=== PATIENT | male | born 1970 | race Caucasian/White ===

== ENCOUNTER 2017-03-12 08:29 | Outpatient (CLI) | payer OTHER ==
[~2017-03-12] VITALS: Ht 180.3 cm; Wt 106.8 kg
--- NOTE | ~2017-03-12 | HEMODYNAMI ---
PATIENT:MARYLOU JACKSON MEDICAL RECORD: [id number] : 66 LOCATION:D.CAT ADMISSION DATE: 03/12/17 Generatedon:03/12/201711:26 Patient name: MARYLOU JACKSON Patient #: [id number] SSN: : 1970 Date of study: 03/12/2017 Page: Of Hemodynamic Procedure Report Patient Data Patient Demographics Procedure consent was obtained First Name: MARYLOU Gender: Male Last Name: RENETTA : 1970 [facility] Initial: DOTTIE Age: 46 year(s) Patient #: [id number] Race: Unknown Additional ID: [id number] Contact details Address: [facility] State: [place] City: [place] Zip code: [address] Past Medical History Allergies: No known allergies Admission Admission Data Admission Date: 03/12/2017 Admission Time: 8:29 Admit Source: Other Lab Results Lab Result Date: 03/12/2017 Lab Result Time: 9:05 Biochemistry Name Units Result Min Max BUN mg/dl 9 --(*---)-- 7 18 Creatinine mg/dl 1.3 --(---*)-- 0.6 1.3 CBC Name Units Result Min Max Hematocrit % 37.9 *-(----)-- 42 54 Hemoglobin g/dl 12.4 *-(----)-- 13.5 17.5 Procedure Procedure Types Cath Procedure Diagnostic Procedure C [facility] w/Coronaries Miscellaneous Procedures Moderate Sedation up to 15 minutes Procedure Description Procedure Date Procedure Date: 03/12/2017 Procedure Start Time: 11:15 Procedure End Time: 11:25 Procedure Staff Name Function Fernando Aldana MD Performing Physician Brady Farr RT Scrub Yolanda Salazar RN Nurse Roseline Will RN Nurse Rudi Silverio RT Monitor Procedure Data Cath Procedure Fluoroscopy Diagnostic fluoroscopy Total fluoroscopy Time: 0.8 time: 0.8 min min Diagnostic fluoroscopy Total fluoroscopy dose: 414 dose: 414 mGy mGy Contrast Material Contrast Material Type Amount (ml) Isovue 300 48 Entry Location Entry Primary Successful Side Size Upsize Upsize Entry Closure Succes sful Closure Location (Fr) 1 (Fr) 2 (Fr) Remarks Device Remarks Femoral Right 5 Fr Exoseal artery Estimated blood loss: 10 ml Diagnostic catheters Device Type Used For End Catheter Placement Cordis 5Fr Pigtail Procedure Catheter (MP) Cordis 5Fr JL 4.0 Procedure Catheter (MP) Cordis 5Fr 3DRC Catheter Procedure (MP) Procedure Complications No complications Procedure Medications Medication Administration Route Dosage 0.9% NaCl I.V. 100 ml/hr Oxygen NC 2 l/min Lidocaine 2% added to field 20 Heparin Flush Bag added to field 2 bags (1000units/500ml NS) Fentanyl I.V. 100 mcg Versed 2 mg Versed 2 mg Fentanyl I.V. 100 mcg Hemodynamics Rest HGB: 12.4 (g/dl) Heart Rate: 106 (bpm) Snapshots Pre Cath Intra NCS Post Cath Vital Signs Time Heart Resp SPO2 etCO2 NIBP (mmHg) Rhythm Pain Sedation Rate (ipm) (%) (mmHg) Status Level (bpm) 10:55:14 102 18 100 44.5 112/78(99) ST 0 (11) 10(A) , No pain 10:59:53 99 15 100 37.6 115/77(107) NSR 0 (11) 10(A) , No pain 11:04:31 102 16 98 37.6 107/62(90) ST 0 (11) 10(A) , No pain 11:09:06 102 17 97 29.3 119/96(111) ST 0 (11) 10(A) , No pain 11:13:49 106 17 98 30.1 122/71(114) ST 0 (11) 9(A) , No pain 11:18:47 105 [address] 0 (11) 9(A) , No pain 11:19:08 105 17 96 23.3 120/82(109) ST 0 (11) 10(A) , No pain 11:23:48 107 9 96 38.4 133/84(103) ST 0 (11) 10(A) , No pain Medications Time Medication Route Dose Verified Delivered Reason Notes E ffectiveness by by 10:43:54 0.9% NaCl I.V. 100ml/hr Fernando Dukes used for Katya Will RN procedure 10:44:07 Oxygen NC 2 l/min Fernando Dukes used for Katya Will RN procedure 10:44:25 Lidocaine 2% added 20ml Fernando King for local to vial Katya Aldana MD anesthetic field 10:44:36 Heparin Flush added 2 bags Fernando King used for Bag to Katya Aldana MD procedure (1000units/500ml field NS) 11:13:16 Fentanyl I.V. 100 mcg Fernando Dukes for Katya Will RN sedation 11:13:28 Versed 2 mg Fernando Dukes for Katya Will RN sedation 11:18:05 Fentanyl I.V. 100 mcg Fernando Dukes for Katya Will RN sedation 11:18:29 Versed 2 mg Fernando Dukes for Katya Will RN sedation Procedure Log Time Note 10:30:46 Yolanda Salazar RN sent for patient. Start room use. 10:36:47 Time tracking: Regular hours 10:36:51 Plan of Care:Hemodynamics will remain stable., Cardiac rhythm will remain stable., Comfort level will be maintained., Respiratory function will remain adequate., Patient/ family verbilizes understanding of procedure., Procedure tolerated without complication., Recovers from procedure without complications.. 10:43:54 0.9% NaCl 100ml/hr I.V. was administered by Roseline Will RN; used for procedure; 10:44:07 Oxygen 2 l/min NC was administered by Roseline Will RN; used for procedure; 10:44:25 Lidocaine 2% 20ml vial added to field was administered by Fernando Aldana MD; for local anesthetic; 10:44:36 Heparin Flush Bag (1000units/500ml NS) 2 bags added to field was administered by Fernando Aldana MD; used for procedure; 10:48:17 Diagnostic Cath status Elective 10:48:19 Admit Source: Other 10:48:36 Patient received from Pre/Post Procedure Room to CCL 1 Alert and oriented. Tansferred to table in Supine position. 10:48:38 Warm blankets applied, and brendan hugger turned on for patient comfort. 10:48:38 Correct patient and procedure confirmed by team. 10:48:41 Signed procedure consent form obtained from patient. 10:48:43 ECG and BP/O2 sat monitors applied to patient. 10:49:40 H&P Date Dictated: 03/03/2017 Within 30 days and on chart., H&P Addendum completed by physician on day of procedure. (MUST COMPLETE FOR ALL OUTPATIENTS). 10:49:42 Pre-procedure instructions explained to patient. 10:49:42 Pre-op teaching completed and patient verbalized understanding. 10:49:45 Family unavailable. 10:49:49 Patient NPO since Midnight. 10:49:57 Patient allergic to No known allergies 10:54:23 Vital chart was started 11:03:43 Is the patient allergic to Iodine/contrast media? No. 11:03:45 Is patient on blood thinner?No 11:03:50 Patient diabetic? No. 11:03:56 Previous problem with sedation/anesthesia? No ? 11:03:57 Snore? Yes 11:03:59 Sleep apnea? No 11:04:00 Deviated septum? No 11:04:00 Opens mouth fully? Yes 11:04:01 Sticks out tongue? Yes 11:04:03 Airway obstruction? No ? 11:04:05 Dentures? No ? 11:04:07 Pre procedure: right dorsailis pedis pulse 2+ Normal; easily identifiable; not easily obliterated 11:04:09 Patient pain scale 0/10 ?. 11:04:24 IV patent on arrival in left forearm with 0.9% NaCl at [facility] 11:06:07 Lab Result : BUN 9 mg/dl 11:06:07 Lab Result : Creatinine 1.3 mg/dl 11:06:07 Lab Result : Hemoglobin 12.4 g/dl 11:06:07 Lab Result : Hematocrit 37.9 % 11:06:11 Lab results completed and on chart. 11:06:12 Right groin area was prepped with chlora-prep and draped in sterile fashion 11:06:13 Alarms reviewed by R. N. 11:06:14 Sharps counted by scrub and verified by R.N. 11:06:16 Use device set Femoral Dx 11:06:17 Tegaderm 4 x 4 (1626W) opened to sterile field. 11:06:35 ACIST: Hand Control (47545) opened to sterile field. 11:06:39 ACIST: Syringe (07212) opened to sterile field. 11:06:40 Bag Decanter (2002S) opened to sterile field. 11:06:42 Medline Cath Pack ([id number]) opened to sterile field. 11:06:42 Terumo 5Fr [place] Sheath opened to sterile field. 11:06:43 St Oscar 260cm J .035 wire opened to sterile field. 11:06:45 Diagnostic Infinity 5Fr Multipack catheter opened to sterile field. 11:09:46 Baseline sample Acquired. 11:10:41 Rhythm: sinus tachycardia 11:11:34 Physician paged 11:11:38 Zero performed for pressure channel P1 11:11:42 Zero performed for pressure channel P1 11:11:48 Zero performed for pressure channel P1 11:11:53 Zero performed for pressure channel P1 11:12:30 Physician arrived 11:12:31 --------ALL STOP TIME OUT------ 11:12:32 Final Timeout: patient, procedure, and site verified with staff and physician. All members of the team are in agreement. 11:12:35 Right groin site verified by team. 11:12:38 Physical assessment completed. ASA score P 2 - A patient with mild systemic disease as per Fernando Aldana MD. 11:12:41 Sedation plan: IV Moderate Sedation Medication:Versed, Fentanyl 11:13:16 Fentanyl 100 mcg I.V. was administered by Roseline Will RN; for sedation; :13:28 Versed 2 mg was administered by Roseline Will RN; for sedation; 11:15:28 Procedure started. 11:15:28 Full Disclosure recording started 11:15:31 Local anesthetic to right femoral artery with Lidocaine 2% by Fernando Aldana MD.INITIAL ACCESS ONLY 11:16:25 A 5 Fr sheath was inserted into the Right Femoral artery 11:16:55 A Cordis 5Fr Pigtail Catheter (MP) was advanced over the wire and used for Procedure. 11:16:59 LV gram done using CRUZ 11:17:01 Injector settings: Ml/sec: 10, Volume: 20, 11:17:03 LV hemodynamics recorded. 11:17:08 EF : 60 % 11:17:10 Catheter exchanged over wire. 11:17:15 A Cordis 5Fr JL 4.0 Catheter (MP) was advanced over the wire and used for Procedure. 11:17:51 LCA angiography performed. 11:18:05 Fentanyl 100 mcg I.V. was administered by Roseline Will RN; for sedation; 11:18:09 Catheter exchanged over wire. 11:18:19 A Cordis 5Fr 3DRC Catheter (MP) was advanced over the wire and used for Procedure. 11:18:29 Versed 2 mg was administered by Roseline Will RN; for sedation; 11:18:44 RCA angiography performed. 11:18:55 Catheter removed. 11:19:10 Cordis 5Fr Exoseal opened to sterile field. 11:19:27 Sheath removed intact; hemostasis achieved with Exoseal to the Right Femoral artery. 11:19:29 Procedure ended.(Physican Out) 11:19:38 Fluoroscopy time 00.80 minutes. 11:19:42 Fluoroscopy dose: 414 mGy 11:19:42 Flurop Dose total: 414 11:19:46 Contrast amount:Isovue 300 48ml. 11:19:47 Sharps counted by scrub and verified by R.N. 11:19:48 Insertion/operative site no bleeding no hematoma. 11:19:50 Post-op/insertion site Right Femoral artery dressed using a 4 x 4 and Tegaderm. 11:19:54 Post right femoral artery:stable, soft, clean and dry 11:19:55 Post Procedure Pulses reassessed and unchanged 11:19:57 Post-procedure physical assessment completed. ASA score P 2 - A patient with mild systemic disease as per Fernando Aldana MD. 11:20:00 Post procedure rhythm: unchanged. 11:20:58 Estimated blood loss: 10 ml 11:21:01 Post procedure instruction explained to patient.Patient verbalizes understanding. 11:21:02 Patient needs reinforcement of post procedure teaching. 11:23:20 PERCUTANEOUS ENTRY 19GA needle opened to sterile field. 11:25:27 Procedure and supply charges have been captured, reviewed, submitted and are correct. 11:25:30 Procedure Complication : No complications 11::33 Vital chart was stopped 11::33 See physician's report for complete and final results. 11:25:36 Report given to Pre/Post Procedure Room. 11::39 Patient transfered to Pre/Post Procedure Room with Stretcher. 11::41 Procedure ended. 11::41 Full Disclosure recording stopped 11::44 End room use (Document Last) Device Usage Item Name Manufacture Quantity Catalog Hospital Part Current Minimal Lot# / Number Charge Number Stock Stock Serial# Code Tegaderm 4 x 3M 1 1626W [id number] [id number] [id number] 5 4 (1626W) ACIST: Hand Acist 1 95118 752950 654258 631835 5 Control Medical (67616) Systems Inc ACIST: Acist 1 68353 188658 034362 064560 20 Syringe Medical (22285) Systems Inc Bag Decanter Microtek 1 2001S 953385 59773 200863 5 (2001S) Medical Inc. Medline Cath Cardinal 1 [id number] 445524 04892 408611 5 Pack Health ([id number]) Terumo 5Fr Terumo 1 XNH540 058501 722412 809848 [address] Oscar 1 995983 336634 295552 987081 30 260cm J .035 wire Diagnostic Cardinal 1 [id number] 257897 20047 004485 30 Infinity 5Fr Health Multipack catheter Cordis 5Fr Cardinal 1 747721 5 Pigtail Health Catheter (MP) Cordis 5Fr Cardinal 1 636812 5 JL 4.0 Health Catheter (MP) Cordis 5Fr Cardinal 1 365814 5 3DRC Health Catheter (MP) Cordis 5Fr Cardinal 1 EX500 037894 275698 530078 10 [facility] Health PERCUTANEOUS [facility] 1 [id number] 184520 495732 5 ENTRY 19GA needle Signature Audit [place] Stage Time Signature Unsigned Intra-Procedure 03/12/2017 Rudi Silverio 11:26:05 AM RT(R) Signatures Monitor : Rudi Silverio RT Signature : Date : Time : [place] [address] [facility] [place] [address]
[2017-03-12 08:56] VITALS: BP 112/73; Ht 180.3 cm; Wt 106.8 kg
[2017-03-12] MEDS ORDERED: HYDROCHLOROTHIA50 MG PO (09:12)
[2017-03-12] MEDS ORDERED: FUROSEMIDE40 MG PO (09:13)
[2017-03-12] MEDS ORDERED: ACETAMINOPHEN325 MG PO (09:13)
[2017-03-12] MEDS ORDERED: HYDROXYZINE HCL50 MG PO (09:14)
[2017-03-12] MEDS ORDERED: TOFRANIL50 MG PO (09:14)
[2017-03-12] MEDS ORDERED: SEROQUEL100 MG PO (09:15)
[2017-03-12] MEDS ORDERED: OMEPRAZOLE20 M1 PO (09:15)
[2017-03-12] MEDS ORDERED: SEROQUEL400 MG PO (09:15)
[2017-03-12] MEDS ORDERED: TRAZODONE HCL150 MG PO (09:16)
[2017-03-12] MEDS ORDERED: ALDACTONE25 MG PO (09:16)
[2017-03-12] MEDS ORDERED: EFFEXOR75 MG PO (09:16)
[2017-03-12 09:19] LABS: BASOPHILS 0.3 % (0-2); EOSINOPHILS 9.4 % (0-7); HEMATOCRIT 37.9 % (42.0-54.0); HEMOGLOBIN 12.4 g/dL (13.5-17.5); IMMATURE GRANULOCYTES 0.3 % (0-5); LYMPHOCYTES 18.5 % (15-50); MCH 29.7 pg (26.0-34.0); MCHC 32.7 g/dL (31.0-37.0); MCV 90.7 fL (80.0-100.0); MEAN PLATELET VOLUME 9.4 fL (7.4-10.4); MONOCYTES 7.4 % (2-11); NEUTROPHILS 64.1 % (40-80); RBC 4.18 10x6/uL (4.20-6.10); RDW 12.8 % (11.5-14.5); WBC 7.3 10x3/uL (4.8-10.8)
[2017-03-12 09:21] LABS: PLATELET COUNT 322 10x3/uL (130-400)
[2017-03-12 09:24] LABS: ANION GAP 11.6 mmol/L (8-16); CALCIUM 8.9 mg/dL (8.5-10.1); CARBON DIOXIDE 29.9 mmol/L (21.0-32.0); CREATININE - SERUM 1.3 mg/dL (0.6-1.3); POTASSIUM - SERUM 3.5 mmol/L (3.5-5.1)
--- NOTE | 2017-03-12 11:46 | NUR ---
1130 RECEIVED PT FROM GROUP COUNSELOR. PT DROWSY. DENIES ANY C/O. RR EVEN AND UNLABORED. DRESSING TO RIGHT GROIN IS CDI, AREA IS SOFT AND NONTENDER. PEDAL PULSES PALPABLE. IV PATENT AND INFUSING PER ORDERS. SINUS TACHYCARDIA WITH RATE OF 112, PT DENIES ANY C/O CHEST PAIN. GUARD AT BEDSIDE.
--- NOTE | 2017-03-12 11:48 | NUR ---
PT SLEEPING, AWAKENS EASILY TO VERBAL STIMULI. DRESSING TO RIGHT GROIN IS CDI, AREA IS SOFT AND NONTENDER. PEDAL PULSES PALPABLE. FOOT WARM. SINUS TACHYCARDIA WITH RATE OF 105, DENIES ANY C/O CHEST DISCOMFORT. BP IS 115/64. GUARD AT BEDSIDE.
--- NOTE | 2017-03-12 12:00 | NUR ---
1200 PT SLEEPING, AWAKENS EASILY. RR EVEN AND UNLABORED. DRESSING CDI, VSS. SINUS TACHYCARDIA WITH RATE OF 104. GUARD AT BEDSIDE, CALL LIGHT IN REACH.
--- NOTE | 2017-03-12 12:18 | NUR ---
DRESSING RIGHT GROIN IS CDI, AREA SOFT AND NONTENDER. PEDAL PULSES PALPABLE. VSS. GUARD AT BEDSIDE. BISI LIGHT IN REACH. SANDWICH AND PO FLUIDS AT BEDSIDE.
--- NOTE | 2017-03-12 12:43 | NUR ---
PT WATCHING TV. DENIES ANY C/O. DRESSING RIGHT GROIN IS CDI, AREA SOFT AND NONTENDER. PEDAL PULSES PALPABLE. GUARD AT BEDSIDE, CALL LIGHT IN REACH.
--- NOTE | 2017-03-12 13:10 | NUR ---
1310 HOB ELEVATED, PT EATING SANDWICH, DRESSING TO RIGHT GROIN IS CDI, AREA SOFT AND NONTENDER.
--- NOTE | 2017-03-12 13:20 | NUR ---
1320 DRESSING REMAINS CDI, AREA SOFT AND NONTENDER. IV DC'D WITH CATH INTACT. DC INSTRUCTIONS REVIEWED WITH PT AND COPIES TO GUARD.
--- NOTE | 2017-03-12 13:35 | NUR ---
1335 PT HAS AMBULATED TO THE BATHROOM AND VOIDED QS. DENIES ANY C/O UPON DC. PT ESCORTED TO POLICE CAR BY NURSE VIA WC WITH GUARD AT SIDE, HAND AND ANKLE CUFFS IN PLACE. PT TO BACKSEAT OF POLICE CAR AND DC TO CARE OF GUARD FOR TRANSPORT TO CORRECTIONAL FACILITY.
--- NOTE | 2017-03-25 12:14 | OP ---
PATIENT NAME: MARYLOU JACKSON MEDICAL RECORD: [id number] :66 LOCATION:D.CAT ADMISSION DATE: SURGEON: ORALIA SHEPPARD MD DATE OF OPERATION: 03/12/2017 PROCEDURES: 1. Left heart catheterization. 2. Selective coronary angiography. 3. Left ventriculogram. INDICATION: Angina. PROCEDURE IN DETAIL: After informed consent was obtained and after detailed explanation of risks, benefits as well as alternative therapies, the patient elected to proceed with angiogram and heart catheterization. The right femoral area was prepped and draped in normal sterile fashion. The right femoral artery was cannulated via modified Seldinger technique with placement of 5-Micronesian sheath. All catheters were exchanged through this sheath. FINDINGS: Left ventriculogram was performed in standard 30-degree CRUZ view and reveals good cardiac wall motion throughout all segments. Overall ejection fraction is estimated at 60%. SELECTIVE CORONARY ANGIOGRAPHY: Left main, left anterior descending, left circumflex, and right coronary artery are all smooth-walled vessels with no angiographic evidence of coronary artery disease. OVERALL IMPRESSION: 1. No angiographic evidence of coronary artery disease. 2. Normal left heart pressures. 3. Normal left ventricular systolic function. Chest pain is noncardiac in etiology. No further cardiac workup needs to be ascertained. TRANSINT:[id number] Voice Confirmation ID: [id number] DOCUMENT ID: [id number] ORALIA SHEPPARD MD at 1214 CC: [id number] DICTATION DATE: 03/12/[address] MENDER: 03/12/17 1421 [facility] CLI 03/12/[address] [address]
== END 2017-03-12 13:35 | disposition home or self-care (01) ==
LOC: D.CATH 08:29
PROVIDERS: Internal Medicine Interventional Cardiology
DX: R07.89 Other chest pain (principal); Z01.812 Encounter for preprocedural laboratory examination